=== PATIENT | female | born 1965 | race Caucasian/White ===

== ENCOUNTER 2018-10-19 08:00 | Emergency (ER) | payer MEDICARE, OTHER ==
[~2018-10-19] VITALS: Ht 152.4 cm; Wt 101.3 kg
[2018-10-19 11:05] VITALS: BP 130/96
== END 2018-10-19 11:24 | disposition home or self-care (01) ==
LOC: EMS 08:03 → EDBD 08:03 → EMS 11:24
DX: F29 Unspecified psychosis not due to a substance or known physiological condition (principal)